=== PATIENT | female | born 1975 ===

== ENCOUNTER 2021-08-21 12:04 | Emergency (ER) | payer OTHER, SELFPAY ==
[2021-08-21 12:16] VITALS: BP 132/86; PULSE 72; RESP 18; TEMP 36.8; O2SAT 100; BMI 23.2
--- NOTE | 2021-08-21 13:20 | ED_ITS ---
HPI - General Adult General Time Seen by Provider: 13:21 Date Seen: 08/21/21 Chief complaint: Extremity Pain/Injury, Upper Stated complaint: Blood Clot right arm Time Seen by Provider: 08/21/21 12:04 Source: patient Mode of arrival: ambulatory Limitations: no limitations History of Present Illness HPI narrative: Patient is a peter 46-year-old female who presented today to her [facility] practice clinic in [place]. She was sent up to the hospital for a right arm ultrasound secondary to the thought of a possible clot or other issue with her right axilla. She noted that she has had numbness or feeling of fullness in her right arm since she woke up this morning. She also feels it is slightly weaker than the left. She is right-hand dominant. She was found to have clots in her right subclavian vein, in her right IJ. her subclavian is totally occluded and she has a partial occlusion of her IJ. she was sent over to the ER for further evaluation and treatment by her primary care physician. She feels now about the same she notices some swelling in her right arm, and some duskiness but she says it is basically gone away now. She has denies any chest pain any shortness of breath or any feeling she might pass out she has never before had any clots anywhere in her body. There is no family history of any hypercoagulable states, she has no history of cancer, she did have COVID in May of this year. She denies any other issues, she is not on any hormones, she is a nonsmoker, enjoys exercising and exercised yesterday. Related Data Home Medications Medication Instructions Recorded Confirmed loratadine 10 mg tablet (Claritin) 10 mg PO DAILY 08/21/21 08/21/21 Allergies Allergy/AdvReac Type Severity Reaction Status Date / Time No Known Allergies Allergy Verified 08/21/21 12:24 Review of Systems Status of ROS: Reports: 10 or more systems reviewed and unremarkable except as noted in History and below [facility] Social History Smoking Status: Never smoker Non-prescribed substance use: denies use Exam Const: Vital Signs, click to edit/add: Vital Signs - 24 hr 08/21/21 12:16 Temperature 98.2 F Pulse Rate [Pulse Oximeter] 72 Respiratory Rate 18 Blood Pressure [Le ft Upper Arm] 132/86 Pulse Oximetry 100 Documenting provider has reviewed patient's vital signs: yes Common normals: no apparent distress, average body habitus, oriented x3, healthy appearing, alert and well nourished Orientation/consciousness: Yes awake, Yes oriented to person, Yes oriented to place and Yes oriented to time HENMT: Common normals: normocephalic, head/scalp atraumatic, hearing grossly normal bilaterally, external ears normal, EAC's normal, TM's normal bilaterally, external nose normal, nasal mucous membranes and turbinates normal, moist oral mucous membranes, oropharynx normal, dentition normal and gingiva normal Head and scalp: normal to inspection, normocephalic and atraumatic Nose: external nose normal and nasal mucous membranes and turbinates normal External ear: external ears normal External auditory canal: EAC's normal Tympanic membrane: TM's normal bilaterally Eye: Common normals: PERRL, EOMs intact bilaterally, conjunctivae normal, no scleral icterus and no papilledema General eye: normal appearance of both eyes, normal light reflex and decreased light reflex Conjunctiva: conjunctiva(e) normal Pupil: PERRL Direct Ophthalmoscopy: normal light reflex, decreased light reflex and no papilledema Neck & C-Spine: Common normals: full ROM, no lymphadenopathy, supple, no meningeal signs, no JVD and thyroid normal General: normal visual inspection and trachea midline Thyroid: thyroid normal Lymph: Lymphatic: no lymphadenopathy noted and no lymphedema noted Chest: Common normals: inspection of chest normal and palpation of chest normal Breast/axilla inspection: normal inspection of the axillae Breast/axilla palpation: other (She has slightly ropy texture of her right axilla in comparison to the left) Resp: Common normals: normal respiratory effort, no retractions, no use of accessory muscles, clear to auscultation bilaterally and percussion normal Effort & inspection: able to speak in complete sentences and symmetric chest movement Auscultation: clear to auscultation bilaterally Percussion: per cussion normal Cardio: Common normals: no JVD, regular rate, regular rhythm, S1 normal heart sound, S2 normal heart sound and peripheral pulses 2+ throughout Palpation: normal PMI Rate: regular rate Rhythm: regular rhythm Heart sounds: S1 normal and S2 normal Peripheral pulses: pulses 2+ throughout GI: Common normals: Normal to inspection, nondistended, normoactive bowel sounds present, soft to palpation, non-tender, no hepatosplenomegaly, no masses and no bruits Palpation: soft and no hepatosplenomegaly : Common normals: no CVA tenderness Bladder/kidney exam: no CVA tenderness Back & Pelvis: Common normals: no CVA tenderness Extremity: Common normals: normal to inspection, full ROM, normal capillary refill, no joint enlargement, no clubbing, cyanosis or edema, no calf tenderness and no pedal edema General: normal exam except as noted Neuro: Common normals: oriented x3, CN's II-XII intact bilaterally, moves all extremities, no focal motor deficits, no sensory deficits noted, deep tendon reflexes 2+ bilaterally and gait normal Sensorium/orientation: awake, alert, oriented to person, oriented to place, oriented to time and orientation impaired Meningeal signs: no meningeal signs Coordination/balance: fwurvu-av-rago test normal, ppwv-tl-eadh test normal, tandem gait normal and does not sway with eyes open Motor exam: strength 5/5 throughout, no pronator drift, no tremor noted, no asterixis, no fasciculations, muscle tone normal throughout and no movement abnormalities noted Coordination: abmlnh-gr-gnke test normal, vdqm-ie-dqvy test normal, Romberg test normal, tandem gait normal and does not sway with eyes open Skin: Common normals: no rashes or lesions noted, no wounds and skin turgor normal (Right arm appears to be slightly more full than the left.) General skin exam: no rashes or lesions noted and turgor normal (Right arm appears to be slightly more full than the left.) Lesions: no lesions Rashes: no rashes Trauma: no lacerations or abrasions Course Vital Signs Vital signs: Initial Vital Signs Temperature 98.2 F 08/21/21 12:16 Temperature Source Temporal Artery Scan 08/21/21 12:16 Pulse Rate 72 08/21/21 12:16 Pulse Rhythm 08/21/21 12:16 Respiratory Rate 18 08/21/21 12:16 Blood Pressure 132/86 08/21/21 12:16 Blood Pressure Mean 101 08/21/21 12:16 Pulse Oximetry 100 08/21/21 12:16 Oxygen Delivery Method 08/21/21 12:16 Vital Signs Temperature 98.2 F 08/21/21 12:16 Pulse Rate 72 08/21/21 12:16 Respiratory Rate 18 08/21/21 12:16 Blood Pressure 132/86 08/21/21 12:16 Pulse Oximetry 100 08/21/21 12:16 Temperature 98.2 F 08/21/21 12:16 Pulse Rate 72 08/21/21 12:16 Respiratory Rate 18 08/21/21 12:16 Blood Pressure 132/86 08/21/21 12:16 Pulse Oximetry 100 08/21/21 12:16 Medical Decision Making MDM Narrative Medical decision making narrative: I spoke to the patient this is indeed bit of atypical situation, I will consult vascular surgery after discussion with her she preferred to stay within the [facility] system particularly within [facility]. I did contact them and have a call out awaiting consultation from a vascular surgeon. In the meantime we will get some lab tests, and following the up-to-date recommendations I have ordered the coagulopathy profile. She was comfortable with this. I spoke to Dr. Jesus Manuel Koch who scribe's into a case at [facility]. He recommended heparin 5000 units subcutaneously in transfer the patient to the [facility] Emergency Room. I did have him read back the dose of heparin and way of giving it. of specific vascular treatment at that point such as tPA. I spoke to the ER Physician he accepted the patient in transfer. I then spoke to the patient and her . She can go by private vehicle. As she is stable. The risk of issues on route is low. Medical Records Medical records reviewed: Yes I reviewed the patient's medical records Lab Data Lab results reviewed: Yes I reviewed the patient's lab results Labs: Lab Results 08/21/21 08/21/21 Range/Units 13:39 13:39 WBC 6.82 (4.50-11.00) K/uL RBC 4.34 (4.00-5.20) m/uL Hgb 13.3 (12.0-16.0) gm/dL Hct 40.5 (33.0-51.0) % MCV 93 (80-100) fL MCH 31 (26-34) pg MCHC 33 (32-36) gm/dL RDW Coeff of Leandra 13.0 (11.5-15.5) % Plt Count 176 (140-440) K/uL Neut % (Auto) 71.7 (42.0-72.0) % Lymph % (Auto) 18.9 L (20-44) % [place] % (Auto) 8.1 (0.0-11.0) % Eos % (Auto) 0.7 (0.0-7.0) % Baso % (Auto) 0.6 (0.0-3.0) % Neut # (Auto) 4.89 (1.7-7.0) K/uL Lymph # (Auto) 1.30 (0.90-2.90) K/uL [place] # (Auto) 0.60 (0.00-0.90) K/UL Eos # (Auto) 0.05 (0.00-0.50) K/uL Baso # (Auto) 0.04 (0.00-0.30) K/uL Abs Immat Gran (auto) 0.00 (0.00-0.30) K/uL ESR 5 (2-20) mm/hr Imaging Data Ultrasound: Attestation: I have reviewed the pertinent imaging results. Radiologist's impression: [facility] Facility:?[facility] Patient ID:?[id number] Site Patient ID:?[id number]. Site :?[id number] Study:?US Extremity Right UEV RT-08/21/2021 11:59:19 AM Ordering Physician:Lena Finn Final Report: INDICATION: Pain and swelling COMPARISON: None. TECHNIQUE: Right upper extremity and neck venous ultrasound performed as well as ultrasound of left internal jugular vein including stark scale/2D, color Doppler, and spectral Doppler imaging including spectral waveform analysis. FINDINGS: Hypoechoic thrombus present within the medial right subclavian vein with lack of Doppler flow. Partial clot within the distal right internal jugular vein. Normal patency of the brachiocephalic, axillary, brachial, basilic, cephalic, radial and ulnar veins. IMPRESSION: Positive DVT in the right distal IJ and medial right subclavian veins. Called to Dr. Tillman 12:06 pm 08/21/2021. Dictated by Papi Patel MD @ 08/21/2021 12:07:27 PM (Electronic Signature) Discharge Plan Discharge Clinical Impression: Deep vein thrombosis, upper right extremity Patient Disposition: Xfer Other Discharge Location: [facility] Condition: Stable Instructions: Deep Vein Thrombosis (ED) Additional Instructions: Discharge from our emergency room, go to [facility] Emergency Room. I spoke to , and also from vascular surgery. Activity Level: No strenuous activity and Light activity Discharge Diet: Other Diet Detail: Nothing by mouth Prescriptions: No Action loratadine [Claritin] 10 mg tablet 10 mg PO DAILY 0RF Stand Alone Forms: [employer] Info Instructions
[2021-08-21 13:51] LABS: Basophils Absolute Auto 0.04 K/uL (0.00-0.30); Basophils Percent Auto 0.6 % (0.0-3.0); Eosinophils Absolute Auto 0.05 K/uL (0.00-0.50); Eosinophils Percent Auto 0.7 % (0.0-7.0); Hematocrit 40.5 % (33.0-51.0); Hemoglobin* 13.3 gm/dL (12.0-16.0); Lymphocytes Percent Auto 18.9 % (20-44); Mean Corpuscular HGB Conc 33 gm/dL (32-36); Mean Corpuscular Hemoglobin 31 pg (26-34); Mean Corpuscular Volume 93 fL (80-100); Monocytes Percent Auto 8.1 % (0.0-11.0); Neutrophils Absolute Auto 4.89 K/uL (1.7-7.0); Neutrophils Percent Auto 71.7 % (42.0-72.0); Platelet Count* 176 K/uL (140-440); Red Blood Count 4.34 m/uL (4.00-5.20); White Blood Count* 6.82 K/uL (4.50-11.00)
[2021-08-21 14:01] LABS: Slide Review Reflex No
[2021-08-21 14:28] LABS: INR 0.96 (0.91-1.10); Prothrombin Time 13.2 Seconds
[2021-08-21 14:30] LABS: Chloride* 107 mmol/L (96-114); Potassium* 4.1 mmol/L (3.6-5.1); Sodium* 140 mmol/L (135-149)
[2021-08-21] MEDS: HEPARIN 5,000 UNIT/0.5 ML INJ 5000 UNIT SQ (14:30)
[2021-08-21 14:33] LABS: Albumin* 4.7 g/dL (3.3-5.0); Creatinine* 0.8 mg/dL (0.5-1.5); Est. Creatinine Clearance* 77.49; Estimated Glomerular Filt Rate 93.12
[2021-08-21 14:34] LABS: Blood Urea Nitrogen* 15 mg/dL (5-24); Calcium* 9.8 mg/dL (8.4-10.6); Carbon Dioxide* 21 mmol/L (20-32); Glucose* 89 mg/dL (60-115)
[2021-08-21 14:36] LABS: Alanine Aminotransferase* 13 U/L (4-35); Alkaline Phosphatase* 50 U/L (40-150); Aspartate Amino Transferase* 28 U/L (12-35); Bilirubin Direct* 0.3 mg/dL (0.0-0.5); Bilirubin Total* 0.7 mg/dL (0.1-1.5); Erythrocyte SedimentationRate* 5 mm/hr (2-20); Total Protein* 7.3 g/dL (6.0-8.3)
[2021-08-21 14:43] LABS: PCR FLU A Negative PCR FLU A (Negative); PCR FLU B Negative PCR FLU B (Negative); PCR RSV Negative PCR RSV (Negative)
[2021-08-21 15:00] VITALS: BP 105/62; PULSE 67; RESP 16; TEMP 37; O2SAT 100
[2021-08-21 15:01] LABS: SARS PCR* Negative SARS-CoV-2 (Negative)
[2021-08-21 15:08] LABS: C Reactive Protein* < 0.5 mg/dL (0.5-1.0)
--- NOTE | 2021-08-21 15:14 | ED.NURSE ---
Called [facility] for report of the patient coming by private car. Talked to Melvin Gayle who taken report. wrapped the saline lock in the LAC. is driving the patient to facility via private car.
[2021-08-21 15:19] VITALS: BP 105/62; PULSE 67; RESP 16; TEMP 37
[2021-08-21 15:23] LABS: Partial Thromboplastin Time* 27 Seconds (23-33)
[2021-08-23 14:01] LABS: Antithrombin, Enzymatic 128 % (76-128)
[2021-08-24 02:14] LABS: Protein C Functional 138 % (83-168)
[2021-08-24 02:42] LABS: Protein S Functional 118 % (57-131)
[2021-08-24 19:02] LABS: PT PCR Specimen Whole Blood; Prothrombin(F2)G20210A Variant Negative
[2021-08-24 21:19] LABS: FACV Specimen Whole Blood; Factor V Leiden (F5) Mutation Negative
== END 2021-08-21 15:21 | disposition other institution (70) ==
PROVIDERS: Emergency Provider Family Medicine
DX: I82.621 Acute embolism and thrombosis of deep veins of right upper extremity (principal)
CPT/HCPCS: 36415; 80048; 80076; 81240; 81241; 85025; 85300; 85303; 85306; 85379; 85610; 85651; 85730; 86140; 87502; 87634; 87635; 96372; 99284; 99285; J1644

== ENCOUNTER 2021-10-02 15:38 | Outpatient (CLI) | payer OTHER, SELFPAY ==
[2021-10-02 21:42] LABS: Uric Acid* 2.8 mg/dL (2.2-8.4)
== END 2021-10-02 15:39 | disposition home or self-care (01) ==
LOC: LKVREF 15:40
PROVIDERS: PCP Family Medicine; Visit Provider Nurse Practitioner Family
DX: M79.672 Pain in left foot (principal)
CPT/HCPCS: 84550